=== PATIENT | female | born 1980 | race African-American/Black ===

== ENCOUNTER 2018-03-10 20:38 | Emergency (ER) | payer OTHER ==
[~2018-03-10] VITALS: Ht 170.1 cm; Wt 81.6 kg
[2018-03-10] MEDS ORDERED: Motrin,Rufen800 MG PO (21:38)
== END 2018-03-10 22:04 | disposition home or self-care (01) ==
LOC: ED 20:38
DX: M25.561 Pain in right knee (principal)

== ENCOUNTER 2018-10-26 14:43 | Emergency (ER) | payer OTHER ==
[~2018-10-26] VITALS: Ht 170.1 cm; Wt 79.4 kg
[~2018-10-26 14:43] MED LIST: Motrin,Rufen800 MG PO
[2018-10-26 15:04] LABS: BILIRUBIN NEGATIVE (NEGATIVE); BLOOD 1+ (NEGATIVE); CLARITY SL CLOUDY (CLEAR); COLOR YELLOW (YELLOW); GLUCOSE NEGATIVE (NEGATIVE); KETONE NEGATIVE (NEGATIVE); LEUKO ESTERASE NEGATIVE (NEGATIVE); NITRITE NEGATIVE (NEGATIVE); SPECIFIC GRAVITY 1.025 (1.005-1.030); UROBILINOGEN 0.2 E.U./dl (0.2-1.0)
[2018-10-26 15:11] LABS: BACTERIA 1+; EPITHELIAL CELLS 0-2; MUCOUS 1+; WBC 0-2 wbc/hpf (0-5)
[2018-10-26 15:21] LABS: BASO % 0.3 % (0.0-1.0); EOS # 0.2 10*3/uL (0.0-0.4); HEMATOCRIT 38.3 % (37.0-47.0); HEMOGLOBIN 11.6 g/dl (12.0-16.0); LYMPH # 0.9 10*3/uL (1.3-4.4); LYMPH % 11.5 % (27.0-41.0); MEAN CELL VOLUME 89.1 fl (81.0-99.0); MEAN CORPUSCULAR HGB CONC 30.3 g/dl (33.0-37.0); MEAN PLATELET VOLUME 8.8 fl (9.6-12.3); MONO # 0.4 10*3/uL (0.1-1.0); MONO % 5.6 % (3.0-9.0); NEUT # 6.1 10*3/uL (2.3-7.9); NEUT % 80.2 % (47.0-73.0); PLATELET COUNT AUTOMATED 264 10*3/uL (130-400); WHITE BLOOD COUNT 7.7 10*3/uL (4.8-10.8)
[2018-10-26 15:43] LABS: ALBUMIN 3.2 gm/dl (3.1-4.5); ALKALINE PHOSPHATASE 44 U/L (45-117); BUN 12 mg/dl (7-24); CHLORIDE 108 mmol/L (98-107); CREATININE 0.96 mg/dL (0.55-1.02); LIPASE 80 U/L (73-393); POTASSIUM 4.2 mmol/L (3.5-5.1); SGOT/AST 11 IU/L (3-35); SGPT/ALT 16 U/L (12-78); SODIUM 140 mmol/L (136-145); TOTAL PROTEIN 7.3 gm/dL (6.4-8.2)
[2018-10-26] MEDS ORDERED: ZOFRAN4 MG PO (16:37)
[2018-10-26] MEDS ORDERED: DICYCLOMINE HCL10 MG PO (16:37)
[2018-10-29 08:10] LABS: GONOCOCCUS BY NAA Negative (Negative)
== END 2018-10-26 17:05 | disposition home or self-care (01) ==
LOC: ED 14:43
PROVIDERS: Physician Assistant
DX: R10.30 Lower abdominal pain, unspecified (principal); F17.200 Nicotine dependence, unspecified, uncomplicated; Z90.5 Acquired absence of kidney

== ENCOUNTER 2019-01-29 07:26 | Emergency (ER) | payer OTHER ==
[~2019-01-29] VITALS: Ht 170.1 cm; Wt 79.4 kg
[~2019-01-29 07:26] MED LIST changes: +DICYCLOMINE HCL10 MG PO; +ZOFRAN4 MG PO
[2019-01-29 07:42] LABS: BILIRUBIN NEGATIVE (NEGATIVE); BLOOD NEGATIVE (NEGATIVE); CLARITY SL CLOUDY (CLEAR); COLOR YELLOW (YELLOW); GLUCOSE NEGATIVE (NEGATIVE); KETONE NEGATIVE (NEGATIVE); LEUKO ESTERASE NEGATIVE (NEGATIVE); NITRITE NEGATIVE (NEGATIVE); PH 6.5 (5.0-9.0); SPECIFIC GRAVITY 1.015 (1.005-1.030); UROBILINOGEN 0.2 E.U./dl (0.2-1.0)
[2019-01-29 07:48] LABS: BASO % 0.4 % (0.0-1.0); EOS # 0.2 10*3/uL (0.0-0.4); EOS % 2.3 % (1.0-4.0); HEMATOCRIT 35.8 % (37.0-47.0); HEMOGLOBIN 11.4 g/dl (12.0-16.0); LYMPH # 2.8 10*3/uL (1.3-4.4); LYMPH % 35.4 % (27.0-41.0); MEAN CELL VOLUME 90.2 fl (81.0-99.0); MEAN CORPUSCULAR HGB 28.7 pg (27.0-31.0); MEAN CORPUSCULAR HGB CONC 31.8 g/dl (33.0-37.0); MONO # 0.6 10*3/uL (0.1-1.0); MONO % 7.8 % (3.0-9.0); NEUT # 4.3 10*3/uL (2.3-7.9); NEUT % 53.7 % (47.0-73.0); PLATELET COUNT AUTOMATED 277 10*3/uL (130-400); RED BLOOD COUNT 3.97 10*6/uL (4.10-5.10); RED CELL DISTRI WIDTH 14.6 % (0-14.5); WHITE BLOOD COUNT 7.9 10*3/uL (4.8-10.8)
[2019-01-29 07:55] LABS: BACTERIA TRACE
[2019-01-29 07:59] LABS: CREATININE 1.26 mg/dL (0.55-1.02); POTASSIUM 4.2 mmol/L (3.5-5.1)
[2019-01-29] MEDS ORDERED: ZOFRAN4 MG PO (08:59)
== END 2019-01-29 08:46 | disposition home or self-care (01) ==
LOC: ED 07:26
PROVIDERS: Emergency Medicine
DX: R10.9 Unspecified abdominal pain (principal); R35.0 Frequency of micturition; R11.0 Nausea

== ENCOUNTER 2025-06-07 13:58 | Emergency (ER) | payer SELFPAY ==
[~2025-06-07] VITALS: Ht 170.1 cm; Wt 90.7 kg
[2025-06-07] MEDS ORDERED: HYDROCHLOROTH12.5 M2 PO (14:17)
[2025-06-07] MEDS ORDERED: Dexamethasone Sodium Phospha 20 MG/5 ML VIAL IV ONE (14:30)
[2025-06-07 14:44] LABS: BASO # 0.1 10*3/uL (0.0-0.1); BASO % 0.7 % (0.0-1.0); EOS # 0.0 10*3/uL (0.0-0.4); EOS % 0.5 % (1.0-4.0); MEAN CELL VOLUME 81.9 fl (81.0-99.0); MEAN CORPUSCULAR HGB 23.3 pg (27.0-31.0); MEAN PLATELET VOLUME 8.5 fl (9.6-12.3); MONO # 0.6 10*3/uL (0.1-1.0); MONO % 7.2 % (3.0-9.0); NEUT # 4.4 10*3/uL (2.3-7.9); NEUT % 57.6 % (47.0-73.0); NUCLEATED RED BLOOD CELL 0.0 % (0.0-0.0); NUCLEATED RED BLOOD CELL 0.0 10*3/uL (0.0-0.0); PLATELET COUNT AUTOMATED 401 10*3/uL (130-400); RED CELL DISTRI WIDTH 17.5 % (0-14.5)
[2025-06-07 15:08] LABS: BILIRUBIN Negative (Negative); BLOOD Negative (Negative); CLARITY Clear (Clear); COLOR Yellow (Yellow); KETONE Negative (Negative); LEUKO ESTERASE Negative (Negative); NITRITE Negative (Negative); PH 6.5 (4.5-8.0); SPECIFIC GRAVITY <= 1.005 (1.001-1.030); UROBILINOGEN 0.2 E.U./dl (0.0-1.0)
[2025-06-07 15:12] LABS: BUN 6 mg/dl (9-23); CPK 170 U/L (34-171)
[2025-06-07 15:26] LABS: BACTERIA 1+; WBC 0-2 wbc/hpf (0-5)
[2025-06-07] MEDS ORDERED: PREDNISONE20 M1 PO (16:54)
[2025-06-07] MEDS ORDERED: NAPROSYN500 MG PO (16:54)
== END 2025-06-07 17:04 | disposition home or self-care (01) ==
LOC: ED 13:58
PROVIDERS: Emergency Medicine
DX: M94.0 Chondrocostal junction syndrome [Tietze] (principal); R60.9 Edema, unspecified; R20.2 Paresthesia of skin; R20.0 Anesthesia of skin; R60.0 Localized edema; Z20.822 Contact with and (suspected) exposure to COVID-19; Z88.0 Allergy status to penicillin

== ENCOUNTER 2025-07-12 02:55 | Emergency (ER) | payer OTHER ==
[~2025-07-12 02:55] MED LIST changes: +HYDROCHLOROTH12.5 M2 PO; +NAPROSYN500 MG PO; +PREDNISONE20 M1 PO
[2025-07-12 03:25] LABS: BILIRUBIN 2+ (Negative); BLOOD 2+ (Negative); CLARITY Turbid (Clear); COLOR Red (Yellow); KETONE Negative (Negative); LEUKO ESTERASE 3+ (Negative); NITRITE Positive (Negative); PH 5.5 (4.5-8.0); SPECIFIC GRAVITY >= 1.030 (1.001-1.030); UROBILINOGEN 0.2 E.U./dl (0.0-1.0)
[2025-07-12 03:40] LABS: BACTERIA 2+; RBC TNTC rbc/hpf (0-2); WBC 21-30 wbc/hpf (0-5)
[2025-07-12 03:45] LABS: BASO # 0.0 10*3/uL (0.0-0.1); BASO % 0.4 % (0.0-1.0); EOS # 0.2 10*3/uL (0.0-0.4); EOS % 2.8 % (1.0-4.0); MEAN CELL VOLUME 79.0 fl (81.0-99.0); MEAN CORPUSCULAR HGB 22.9 pg (27.0-31.0); MEAN PLATELET VOLUME 8.6 fl (9.6-12.3); MONO # 0.5 10*3/uL (0.1-1.0); MONO % 6.7 % (3.0-9.0); NEUT # 3.7 10*3/uL (2.3-7.9); NEUT % 52.0 % (47.0-73.0); NUCLEATED RED BLOOD CELL 0.0 % (0.0-0.0); NUCLEATED RED BLOOD CELL 0.0 10*3/uL (0.0-0.0); PLATELET COUNT AUTOMATED 337 10*3/uL (130-400); RED CELL DISTRI WIDTH 17.3 % (0-14.5)
[2025-07-12] MEDS ORDERED: Ciprofloxacin Hydrochloride 500 MG TAB PO ONE (03:55)
[2025-07-12 04:07] LABS: BUN 9 mg/dl (9-23)
[2025-07-12] MEDS ORDERED: Ondansetron Hydrochloride 4 MG TAB SL ONE (04:20)
[2025-07-12] MEDS ORDERED: Ciprofloxacin Hydrochloride 500 MG TAB ONE (04:22)
[2025-07-12] MEDS ORDERED: Ondansetron Hydrochloride 4 MG TAB ONE (04:46)
[2025-07-12] MEDS ORDERED: CIPRO500 MG PO (05:06)
== END 2025-07-12 05:13 | disposition home or self-care (01) ==
LOC: ED 02:55
PROVIDERS: Internal Medicine
DX: N94.6 Dysmenorrhea, unspecified (principal); D50.9 Iron deficiency anemia, unspecified; I10 Essential (primary) hypertension; N39.0 Urinary tract infection, site not specified; Z88.0 Allergy status to penicillin; Z88.5 Allergy status to narcotic agent